=== PATIENT | female | born 1995 | race Asian ===

== ENCOUNTER 2025-01-23 00:27 | Emergency (ER) | payer OTHER ==
[~2025-01-23] VITALS: Ht 154.9 cm; Wt 62.0 kg
[2025-01-23 01:00] VITALS: TEMP 36.6; O2SAT 98
[2025-01-23 01:02] VITALS: BP 134/91; PULSE 72; RESP 20; O2SAT 100
[2025-01-23] MEDS ORDERED: FAMOTIDINE 20MG TABLET PO ONE (01:45)
[2025-01-23 01:49] LABS: HEMATOCRIT. 39.1 % (36.0-48.0); HEMOGLOBIN. 13.3 g/dL (12.0-16.0); MEAN CORPUSCULAR HEMOGLOBIN 29.9 pg (28.0-32.0); MEAN CORPUSCULAR HGB CONC 33.9 g/dL (31.0-37.0); MEAN CORPUSCULAR VOLUME 88.1 fL (81.0-99.0); MEAN PLATELET VOLUME 9.6 fl (7.4-10.4); PLATELET 248 x1000/uL (130-400); RED BLOOD CELL COUNT 4.44 mill/uL (4.2-5.4); RED CELL DISTRIBUTION WIDTH 12.9 % (11.6-14.6); WHITE BLOOD COUNT 14.9 x1000/uL (4.5-11.0)
[2025-01-23 01:56] LABS: CHLORIDE 107 mEq/L (98-107); SODIUM 139 mEq/L (136-145)
[2025-01-23 01:57] LABS: CARBON DIOXIDE 24 mEq/L (21-32)
[2025-01-23 01:58] LABS: CALCIUM 11.3 mg/dL (8.7-10.4)
[2025-01-23 02:02] LABS: DIFFERENTIAL COMMENT 1
[2025-01-23 02:03] LABS: CREATININE 0.8 mg/dL (0.6-1.0); GLUCOSE 128 mg/dL (70-105); UREA NITROGEN BLOOD 7 mg/dL (9-23)
[2025-01-23 02:04] LABS: ALANINE AMINOTRANSFERASE 28 IU/L (10-49)
[2025-01-23 02:05] LABS: ALBUMIN 4.4 g/dL (3.2-4.8); ASPARTATE AMINOTRANSFERASE 19 IU/L (<34); BILIRUBIN DIRECT 0.4 mg/dL (<=3.0); BILIRUBIN TOTAL 1.6 mg/dL (0.1-1.0); PROTEIN TOTAL 7.7 g/dL (6.0-8.3)
[2025-01-23 02:07] LABS: CLARITY URINE TURBID (CLEAR); COLOR URINE YELLOW (YELLOW); GLUCOSE URINE NEGATIVE (NEGATIVE); KETONES URINE 3+ (NEGATIVE); LEUKOCYTE ESTERASE URINE 1+ (NEGATIVE); NITRITE URINE NEGATIVE (NEGATIVE); OCCULT BLOOD URINE NEGATIVE (NEGATIVE); PH URINE 7.5 (4.5-8.0); PROTEIN URINE TRACE (NEGATIVE); SPECIFIC GRAVITY URINE 1.015 (1.005-1.030)
[2025-01-23] MEDS: ONDANSETRON 4MG ODT PO ONE (02:13)
[2025-01-23 02:25] LABS: SQUAMOUS EPITHELIAL CELL URINE 1+ /lpf (RARE/1+)
[2025-01-23 02:26] LABS: AMORPHOUS SEDIMENT URINE 2+ /lpf; BACTERIA URINE 1+; RBC URINE 0-2 /hpf (0-2)
[2025-01-23] MEDS: PANTOPRAZOLE SODIUM 40 MG/VIAL IV ONE (03:01)
[2025-01-23] MEDS: MAGNESIUM/ALUMINUM HYDROXIDE/SIMETHICONE 30ML UDC PO ONE (03:02)
[2025-01-23] MEDS: METOCLOPRAMIDE HCL 10MG/2ML VIAL IV ONE (03:02)
[2025-01-23] MEDS: FAMOTIDINE 20MG/2ML VIAL IV ONE (03:07)
[2025-01-23] MEDS: SODIUM CHLORIDE 0.9% 1,000 ML IV ONE (03:07)
[2025-01-23 04:07] LABS: THYROID STIMULATING HORMONE 1.13 uIU/mL (0.55-4.78)
[2025-01-23] MEDS: ONDANSETRON HCL 4MG/2ML INJ IV ONE (04:14)
[2025-01-23 04:15] LABS: PLATELET ESTIMATE NORMAL
[2025-01-23] MEDS ORDERED: MAG355OR21 MT (04:58)
[2025-01-23] MEDS ORDERED: FAMO20TA8 MT (04:58)
[2025-01-23] MEDS ORDERED: ONDA4TAB50 MT (04:58)
== END 2025-01-23 05:14 | disposition home or self-care (01) ==
LOC: ER 00:40
DX: R10.13 Epigastric pain (principal); Z79.899 Other long term (current) drug therapy
CPT/HCPCS: 99284; 96374; 96375; 80076; 80048; 81003; 82330; 83690; 83735; 84443; 85025; 36415; 93005; 83970; Q0162; J3490; J2765; J2405; J2470